=== PATIENT | female | born 1950 | race Hispanic/Latino ===

== ENCOUNTER 2019-04-18 14:14 | Observation (INO) | payer MEDICARE ==
[2019-04-18] MEDS ORDERED: Nitroglycerin 2% Ointment 1 INCH/1 GM Packet ONE (14:35)
[2019-04-18] MEDS ORDERED: Aspirin Chewable 81 MG TAB ONE (14:35)
[2019-04-18 14:44] LABS: #Basophils 0.1 thou/uL (0.0-0.2); #Eosinphils 0.1 thou/uL (0.0-0.7); #Lymphocytes 1.9 thou/uL (1.20-3.40); #Monocytes 0.5 thou/uL (0.11-0.59); #Neutrophils 3.9 thou/uL (1.40-6.50); %Basophils 1.7 % (0.0-1.0); %Eosinophils 1.6 % (0.0-10.0); %Lymphocytes 29.2 % (21.0-51.0); %Monocytes 7.9 % (0.0-10.0); %Neutrophils 59.6 % (42.0-75.0); Hemoglobin 13.8 g/dL (12.0-16.0); Mean Corpuscular HGB CONC 33.1 g/dL (32.0-36.0); Mean Corpuscular Hemoglobin 29.9 pg (27.0-31.0); Mean Corpuscular Volume 90.6 fL (78.0-98.0); Mean Platelet Volume 7.6 fL (7.4-10.4); Platelet Count 197 thou/uL (130-400); RBC Distribution Width 12.5 % (11.5-14.5); White Blood Cell (WBC) Count 6.6 thou/uL (4.8-10.8)
--- NOTE | 2019-04-18 15:03 | RAD ---
XR Chest 1 View Portable HISTORY: Left-sided chest pain x3 days COMPARISON: 12/21/2018 study FINDINGS: Heart size appears borderline with postop sternotomy changes and aortic valve replacement. The lungs are clear of infiltrates. There are no signs of failure. IMPRESSION: No active intrathoracic disease.
[2019-04-18 15:04] LABS: ALT (SGPT) 24 U/L (8-55); AST (SGOT) 24 U/L (5-34); Albumin 4.4 g/dL (3.4-4.8); Alkaline Phosphatase 110 U/L (40-150); Anion Gap 11 mmol/L (10-20); BUN (Urea Nitrogen) 9 mg/dL (9.8-20.1); Bilirubin, Total 0.4 mg/dL (0.2-1.2); Calc. Creatinine Clearance 0 mL/min (70-130); Calcium 9.6 mg/dL (7.8-10.44); Carbon Dioxide 24 mmol/L (23-31); Chloride 104 mmol/L (98-107); Estimated GFR-MDRD 68; Globulin 3.7 g/dL (2.4-3.5); Glucose 121 mg/dL (80-115); Potassium 4.3 mmol/L (3.5-5.1); Protein, Total 8.1 g/dL (6.0-8.3); Sodium 135 mmol/L (136-145)
[2019-04-18 17:48] LABS: Troponin I Less than 0.010 ng/mL (< 0.028)
[2019-04-18 18:59] VITALS: BMI 32.9
[2019-04-18] MEDS ORDERED: HYDROcodone/Acetaminophen 5/325 mg Tablet PO PRN (20:10)
[2019-04-18] MEDS ORDERED: Acetaminophen 325 MG TAB PO PRN (20:10)
[2019-04-18] MEDS ORDERED: Senokot S 8.6-50 MG TAB PO PRN (20:10)
[2019-04-18 20:52] LABS: Troponin I Less than 0.010 ng/mL (< 0.028)
[2019-04-18] MEDS: Famotidine 20 MG TAB PO SCH (21:29)
[2019-04-18] MEDS ORDERED: Melatonin 3 MG TAB PO PRN (23:33)
[2019-04-19 07:12] LABS: #Eosinphils 0.1 thou/uL (0.0-0.7); #Monocytes 0.5 thou/uL (0.11-0.59); #Neutrophils 2.7 thou/uL (1.40-6.50); %Basophils 0.4 % (0.0-1.0); %Eosinophils 2.1 % (0.0-10.0); %Lymphocytes 37.5 % (21.0-51.0); %Monocytes 8.7 % (0.0-10.0); %Neutrophils 51.4 % (42.0-75.0); Hemoglobin 14.3 g/dL (12.0-16.0); Mean Corpuscular HGB CONC 30.5 g/dL (32.0-36.0); Mean Corpuscular Hemoglobin 27.7 pg (27.0-31.0); Mean Corpuscular Volume 90.6 fL (78.0-98.0); Mean Platelet Volume 8.3 fL (7.4-10.4); Platelet Count 153 thou/uL (130-400); RBC Distribution Width 12.7 % (11.5-14.5); Red Blood Cell (RBC) Count 5.16 mill/uL (4.20-5.40); White Blood Cell (WBC) Count 5.3 thou/uL (4.8-10.8)
[2019-04-19 07:39] LABS: Anion Gap 14 mmol/L (10-20); BUN (Urea Nitrogen) 8 mg/dL (9.8-20.1); Calc. Creatinine Clearance 100 mL/min (70-130); Calcium 9.4 mg/dL (7.8-10.44); Carbon Dioxide 24 mmol/L (23-31); Cardiac Risk 2.1 (Less than 4.5); Chloride 103 mmol/L (98-107); Cholesterol 141 mg/dl (< 200 Desired); Estimated GFR-MDRD 86; Glucose 110 mg/dL (80-115); HDL Cholesterol 67 mg/dL (>60 Neg Risk); LDL Cholesterol, Calculated 62 mg/dL; Potassium 4.3 mmol/L (3.5-5.1); Sodium 137 mmol/L (136-145); Triglycerides 58 mg/dL (Less than 150)
[2019-04-19] MEDS: Famotidine 20 MG TAB PO SCH (08:50)
[2019-04-19] MEDS ORDERED: Enoxaparin Sodium 40 MG/0.4 ML SYRINGE SC SCH (09:00)
[2019-04-19] MEDS ORDERED: ADENOSINE 60 MG/20 ML VIAL ONE (10:26)
--- NOTE | 2019-04-19 11:34 | HP ---
PRIMARY CARE PHYSICIAN: Out of town. She lives in [place]. CHIEF COMPLAINT: Chest pain. HISTORY OF PRESENT ILLNESS: Ms. Martinez is a Arabic-speaking only. History was obtained by using the video ad setter Arabic. The patient is a poor historian, even with the ad setter, it was difficult to get much history. The patient does report that she has lived in [place] for 20 years, moved to [place], moved back to [place]. With going through her medication list that she reports that she has had CABG x1 with a pig valve to aortic valve replacement in November of 2017 and she has been on Plavix for this time frame. She reports today that she has had left-sided chest pain times last 3 days. She denies any arrhythmias. Denies any shortness of breath. Denies any fever or chills. Denies any abdominal pain. EKG in the emergency room shows sinus bradycardia, beats per minute 55. Does have a history of hypertension and coronary artery disease. She does have a pig valve. Reports that she did have some recent cardiac workup in the [place], but is unable to describe what it is that she had done. Reports that she developed a DVT in her right leg after the CABG. Reports that she was on Eliquis and stopped taking that 2 months ago. She reports that she was on Plavix, but had stopped taking it and was unable to describe why she was on it or why she stopped taking it. The patient was subsequently admitted to the observation unit for further management. PAST MEDICAL HISTORY: Pertinent for hypertension, hyperlipidemia, coronary artery disease, DVT. PAST SURGICAL HISTORY: Coronary artery bypass graft x1, has a pig valve replacement for the aortic valve. Surgical history of a thyroidectomy. PSYCHIATRIC HISTORY: None. SOCIAL HISTORY: No alcohol, drug, or smoking history. KNOWN ALLERGIES: None. CURRENT MEDICATIONS: 1. Fosamax 70 mg p.o. q.7 days. 2. Norvasc 5 mg p.o. daily. 3. Aspirin 81 mg p.o. at bedtime. 4. Lipitor 40 mg p.o. at bedtime. 5. Levothyroxine 88 mcg p.o. daily. 6. Lopressor 25 mg p.o. b.i.d. 7. Protonix 40 mg p.o. daily. 8. Does report a recent history of on Plavix, although she is not sure why and the Eliquis that she took for the DVT she developed postop after her heart surgery. REVIEW OF SYSTEMS: The patient does report left-sided chest pain x3 days. Denies any shortness of breath. Denies any palpitations. Chest pain did get better after application of some nitroglycerin paste. Denies any dyspnea on exertion. All other systems reviewed and are negative unless mentioned in the HPI. PHYSICAL EXAMINATION: VITAL SIGNS: Blood pressure 153/72, pulse is 57, respirations 16, temp is 98.1, pO2 sats are 98% on room air. CONSTITUTIONAL: The patient is nontoxic appearing, appears pain free, is alert and oriented to person, place, and time. HEENT: Head is atraumatic and normocephalic. Eyes; eyelids are normal to inspection. Pupils are equally round and reactive to light. ENT; mouth exam is normal. Mucous membranes are moist. NECK: Normal range of motion. Trachea is midline. RESPIRATORY/CHEST: Breath sounds are clear. There are no findings of any respiratory distress. CARDIOVASCULAR: Regular heart rate and rhythm. Heart sounds are normal. ABDOMEN: Nontender. Bowel sounds are heard. BACK: Normal inspection. Normal range of motion. No tenderness. EXTREMITIES: Upper extremities; motor strength is normal. Sensation intact. Radial pulses are normal. Lower extremities; normal range of motion. Motor strength is normal. Sensation is intact. Pedal pulses are normal. NEUROLOGIC: The patient is alert and oriented to person, place, and time. Speech is normal. SKIN: Has a large healed scar midline chest from previous CABG, otherwise normal dry and normal color. Chest x-ray; heart appears borderline in size with postop sternotomy changes and aortic valve replacement. Lungs are clear of infiltrates. No signs of failure. PERTINENT LABORATORY DATA: Sodium 135, potassium 4.3, chloride 104, carbon dioxide 24, gap is 11, BUN is 9, creatinine is 0.84, estimated GFR 68, glucose is 121. Liver enzymes are unremarkable. Troponin x3 are undetectable. D-dimer 0.27. Hematology; white blood cell count is 6.6, hemoglobin is 13.8, hematocrit is 41.7, and platelet count is 197. ASSESSMENT AND PLAN: 1. Chest pain. We are going to try and obtain some records from her past hospitalizations for cardiac procedures further delineate why she is on Plavix and any procedures that she may have had and if there are any changes. Troponins x3 are negative. We will go ahead and put in a stress test with nuclear medicine. 2. Hypertension. Home medications will be restarted. We will trend. 3. Hypothyroidism, post thyroidectomy. We will check thyroid level. 4. Hyperlipidemia. We will get fasting lipids in the morning. 5. Deep venous thrombosis and gastrointestinal prophylaxis have been started. 6. Hospital course will be dependent on clinical findings. Job ID: [id number]
--- NOTE | 2019-04-19 13:20 | NM ---
Radionucleotide stress and rest myocardial perfusion scan with CT attenuation correction and SPECT im aging Left ventricular wall motion evaluation and ejection fraction HISTORY: Chest pain. FINDINGS: There is homogeneous uptake of radiotracer throughout the left ventricular myocardium. No f ocal perfusion defect or reversibility. Adenosine protocol. QGS analysis of gated SPECT images shows no focal wall motion abnormalities. Ejection fraction calcul ated at greater than 80%. IMPRESSION: Normal myocardial perfusion scan. Normal LVEF.
[2019-04-19 13:21] VITALS: BP 137/66; TEMP 98.6
--- NOTE | 2019-04-20 05:02 | DIS ---
DATE OF ADMISSION: 04/18/2019 DATE OF DISCHARGE: 04/19/2019 This is Silvina Jacobson PA-C dictating a report for Carissa Marley MD. CHIEF COMPLAINT ON ADMISSION: Chest pain. DISCHARGE DIAGNOSES: 1. Chest pain, resolved, acute coronary syndrome ruled out. Nuclear stress test negative for reversible ischemia. 2. Status post one-vessel coronary artery bypass grafting and bioprosthetic AVR, 2018. 3. History of deep venous thrombosis provoked by above, status post treatment with Eliquis x6 months. 4. Hypertension. 5. History of type 2 diabetes mellitus, currently diet controlled. BRIEF HOSPITAL COURSE: The patient is a pleasant Polish speaking only 68-year-old female with past medical history significant for severe single-vessel coronary artery disease status post CABG and severe aortic stenosis status post bioprosthetic AVR in 2018, who is here in town visiting family from [place]. The patient has been having some intermittent nonexertional chest pain. She has difficulty characterizing the chest pain but per the daughter, she also has some bilateral tingling in her hands. No diaphoresis, dizziness, or palpitations associated with discomfort. Due to her numerous risk factors and history, nuclear stress test was performed which was negative for reversible ischemia. She had normal left ventricular systolic function as well. Serial troponin was negative. The patient feels well this morning. She has ambulated. She has had no further chest discomfort. I have had a long conversation with the patient's daughter, who is Afghan-speaking and states that she believes some of this discomfort could be anxiety related. The patient does follow with her ultrasonic tester in [place] very regularly. He had taken her off both the Plavix and Eliquis, and left her on the aspirin which has caused the patient some anxiety. In any case, her workup here was negative. She plans to travel back to [place] for further followup with her ultrasonic tester. CONDITION AT DISCHARGE: Stable. DISCHARGE DISPOSITION: Home with her daughter. DISCHARGE INSTRUCTIONS/FOLLOWUP: On admission, she will follow up with her primary ultrasonic tester in [place]. I have given them the names of ultrasonic tester here in town at [facility] if the patient does decide to move here. She should continue her aspirin, statin, and beta doug as prescribed by her ultrasonic tester. She will continue carb consistent diet. Care of this patient has been discussed with Dr. Marley, who agrees with discharge as stated above. Job ID: [id number]
--- NOTE | 2019-04-21 15:14 | EKG ---
Test Reason : CP Blood Pressure : / mmHG Vent. Rate : 055 BPM Atrial Rate : 055 BPM P-R Int : 158 ms QRS Dur : 088 ms QT Int : 438 ms P-R-T Axes : -06 024 050 degrees QTc Int : 419 ms Sinus bradycardia T wave abnormality, consider anterior ischemia Abnormal ECG Confirmed by NATHANIEL MURPHY ([id number]), medical transcription editor PHILLY GUZMÁN ([id number] on 04/21/2019 3:13:24 PM Referred By: Confirmed By:NATHANIEL MURPHY
== END 2019-04-19 14:36 | disposition home or self-care (01) ==
LOC: ERS 14:14 → 2SW 15:45
PROVIDERS: ADMIT Internal Medicine; ATTEND Internal Medicine
DX: R07.89 Other chest pain (principal); I10 Essential (primary) hypertension; E78.5 Hyperlipidemia, unspecified; I25.10 Atherosclerotic heart disease of native coronary artery without angina pectoris; E03.9 Hypothyroidism, unspecified; E11.9 Type 2 diabetes mellitus without complications; R00.1 Bradycardia, unspecified; Z86.718 Personal history of other venous thrombosis and embolism; Z95.1 Presence of aortocoronary bypass graft; Z79.82 Long term (current) use of aspirin; Z79.899 Other long term (current) drug therapy
CPT/HCPCS: 71045; 78452; 80048; 80053; 80061; 84443; 84484 ×2; 85025 ×2; 85379; 93005; 93017; 94760; 99285; A9500; G0378 ×2; 36415